=== PATIENT | female | born 1970 | race Caucasian/White ===

== ENCOUNTER 2017-03-14 14:40 | Emergency (ER) | payer SELFPAY ==
[2017-03-14] MEDS ORDERED: KETOROLAC 60 MG/2 ML VIAL IM ONE (14:58)
[2017-03-14 15:05] VITALS: RESP 18; TEMP 99
[2017-03-14 15:16] LABS: BILIRUBIN,URINE NEGATIVE (NEG); COLOR,URINE YELLOW; GLUCOSE, URINE (UA) NEGATIVE (NEG); NITRATE,URINE NEGATIVE (NEG); OCCULT BLOOD,URINE NEGATIVE (NEG); PROTEIN,URINE NEGATIVE (NEG); UROBILINOGEN,URINE 0.2 EU/dL (0.2)
[2017-03-14 15:22] LABS: CLARITY,URINE CLEAR (CLEAR)
[2017-03-14 15:23] LABS: SQUAMOUS EPITHELIAL CELL,UR FEW; URINE SAMPLE TYPE CLEAN CATCH URINE
--- NOTE | 2017-03-14 16:26 | DI ---
XR L-SPINE 2-3 VW,03/14/2017 2:59 PM: Clinical History: Low back pain radiating to the left lower extremity. Previous Exam: None at this facility. Findings: AP and lateral views of the lumbar spine are obtained, and demonstrate anatomic alignment without fra ctures. Vertebral body height is preserved. There is mild degenerative facet arthropathy. A nonobstructive bowel gas pattern is seen. No pathologic calcifications are seen. A few peripheral vascular calcifications are noted. Impression: Normal lumbar spine.
--- NOTE | 2017-03-14 23:07 | PDOC ---
Back Pain / Injury HPI - General Chief Complaint: Neck / Back Complaint Stated Complaint: BACK PAIN Date Seen by Provider: 03/14/17 Time Seen by Provider: 15:00 Source: Patient Exam Limitations: POSITIVE: No limitations Nurse's Notes Reviewed & Considered: Yes - History of Present Illness Initial Comments: The patient is a 46-year-old female who presents to the emergency department with lower back pain. She states that over the past couple of weeks she has been having some pain in her lower back. She had been getting some pain radiating down the left leg as well. She denies any specific injury to her back. She states that off and on through the years she has had some similar types of pain in her back although she states that is never lasted this long or become quite as intense. She reports over the past couple of days the intensity has increased. She has had a difficult time even sleeping secondary to the pain. The pain is primarily located in her lower back however does radiate down her left leg to the level of her calf and even sometimes down into her foot. She also occasionally gets some numbness in her calf and foot. She denies any change in urinary symptoms although she does report some urinary incontinence type symptoms. She denies fevers or chills. She has not had any prior surgery on her back. She has been taking ibuprofen without any relief. - Patient Home Medications Home Medications: Home Medications Buspirone HCl 15 mg PO BID 03/14/17 Cyclobenzaprine HCl [Flexeril] 10 mg PO TID PRN #20 tab 03/14/17 Diclofenac Sodium [Voltaren] 2 gm TP QID 03/14/17 Escitalopram Oxalate [Lexapro] 20 mg PO DAILY 03/14/17 Hydrocodone/Acetaminophen [[place] 7.5-325 Tablet] 1 each PO Q6H #15 tablet Ibuprofen 800 mg PO TID PRN 03/14/17 - Patient Allergies Allergies/Adverse Reactions: Allergies Allergy/AdvReac Type Severity Reaction Status Date / Time No Known Allergies Allergy Unverified 03/14/17 14:53 Past Medical History - heen HEENT History: Denies History Cardiovascular History: Denies History Respiratory History: Denies History Gastrointestinal History: Denies History Genitourinary History: Denies History Endocrine History: Denies History Musculoskeletal History: Denies History Prosthesis or Implant: No Neurological History: Denies History Blood Disorders: Denies History Psychiatric History: Denies History History of Sexually Transmitted Diseases: No Female Reproductive History: Denies History LMP: 2 YRS Obstetrical History: Denies History Cancer History: Denies History In Past Year Been Physically Harmed or Verbally Threatened: No History of MDRO: No History of Other Communicable Diseases: No Tobacco Use: Current Every Day Smoker Alcohol Use: Rarely Substance Use Type: Marijuana Previous Surgical History: No Past Medical History Reviewed: Reviewed - No Changes ROS - Limitations ROS Limitations: No Limitations Constitution: DENIES: Chills, Fever Cardiovascular: REPORTS: Denies Cardiac Symptoms Respiratory: REPORTS: Denies Resp Symptoms Neurological: REPORTS: Numbness (Some numbness in the left calf extending into her foot and toes). DENIES: Weakness Gastrointestinal: REPORTS: Denies GI Symptoms. DENIES: Abdominal Pain, Vomitting Genitourinary: REPORTS: Other (Some urinary incontinence type symptoms which have been ongoing even prior to this back pain). DENIES: Discharge, Dysuria, Flank Pain, Difficulty Urinating Eyes: REPORTS: Denies Symptoms ENT: REPORTS: Denies Symptoms Skin: DENIES: Rash Back Physical Assessment - General Appearance General Appearance: REPORTS: Alert, Cooperative, No Acute Distress - HEENT HEENT: POSITIVE: Head Inspection Nml, Eyes Inspection Nml, Ears Inspection Nml, Nose Inspection Nml, Pharynx Inspect. Nml - Respiratory / CVS Respiratory / CVS: POSITIVE: Breath Sounds Normal, No Respiratory Distress, Heart Sounds Normal, Regular Rate/Rhythm - Abdomen Abdomen: Soft: (All Quadrants), Denies Tenderness: (All Quadrants), No Distention: (All Quadrants) - Back Back: REPORTS: Normal Inspection, Other (She does have tenderness in the lumbar region without any evidence of swelling or erythema) - Skin Skin: REPORTS: Intact, No Rash - Extremities Extremity Assessment: Normal ROM: (ALL), Normal Inspection: (ALL) Peripheral Pulses: Dorsalis-pedis (R): 2+, Dorsalis-pedis (L): 2+ - Neurological / Psychological Neuro / Psych: POSITIVE: Oriented X3, Motor Normal, Sensation Normal Back Progress - Results Reviewed by me Xrays/CTs/US Reviewed: Yes Discussed with Radiologist: Yes Radiology Findings: X-ray of the lumbar spine reveals no evidence of fracture, no acute abnormalities per radiologist. Lab Results Reviewed: Yes Lab Results:: Laboratory Results 03/14/17 Range/Units 15:07 Ur Collection Type Clean catch urine Urine Color Yellow Urine Clarity Clear (CLEAR) Urine pH 7.0 (5.0-8.5) Ur Specific [place] <=1.005 (1.005-1.030) Urine Protein Negative (NEG) mg/dl Urine Glucose (UA) Negative (NEG) mg/dL Urine Ketones Negative (NEG) Urine Occult Blood Negative (NEG) Urine Nitrate Negative (NEG) Urine Bilirubin Negative (NEG) Urine Urobilinogen 0.2 (0.2) EU/dL Ur Leukocyte Esterase Trace (NEG) Urine RBC None (NONE) /hpf Urine WBC 3-5 (NONE) Ur Squamous Epith Cells Few (NONE) Ur Renal Epithelial Cell None (NONE) Urine Crystals None Urine Bacteria None (NONE) Urine Casts None (NONE) Urine Mucus None (NONE) Urine Trichomonas None (NONE) Urine Yeast None (NONE) Ur Culture Indicated? Culture not set - Patient's Progress MDM / ED Course: The patient was given an injection of Toradol 60 mg and Norflex 60 mg IM. X- rays were obtained showing no evidence of acute fracture, she does have some mild degenerative changes noted. Urinalysis did not reveal any evidence of infection or blood. She is advised to continue ibuprofen 800 mg every 8 hours as needed for pain. In addition she was given a prescription for Flexeril 10 mg every 8 hours as needed for spasm and [place] 5/325 every 6 hours as needed for pain. She is advised return to the emergency room if she develops increased pain, numbness or weakness in her legs, bowel or bladder dysfunction, any worsening or change in symptoms. She is advised follow-up with her primary care provider in 5-7 days. She is advised that if she has continued pain or radicular pain down her leg that she may require MRI for further evaluation. - Consult Counseled: POSITIVE: Patient, RE: Lab Results, RE: Radiology Results, RE: DX, RE : Need for F/U Patient Care Time - Estimated PCT Patient Care Time (In Minutes): 20 Vital Signs - VS Reviewed Vital Signs Reviewed: Yes Discharge Clinical Impression: Acute low back pain, Lumbar radicular pain Discharge Disposition: Discharged to Home Condition: Fair Prescriptions / Orders: Cyclobenzaprine HCl [Flexeril] 10 mg PO TID PRN #20 tab PRN Reason: Spasms Hydrocodone/Acetaminophen [[place] 7.5-325 Tablet] 1 each PO Q6H #15 tablet Patient Instructions Given at Discharge: Lumbar Radiculopathy (ED), Back Pain ( ED) Additional Instructions: The x-rays of your lower back did not reveal any evidence of fracture, there was some mild arthritic changes as well as some mild disc space narrowing. Recommend continued use of ibuprofen 800 mg every 8 hours as needed for pain. In addition your been prescribed Flexeril 10 mg every 8 hours as needed for spasm and [place] 7.5/325 one every 6 hours as needed for severe pain. Return to the emergency room if increased pain, weakness or numbness in her legs, fever, any worsening or change in symptoms. Recommend follow-up with primary care in 5 -7 days. If continued pain in may require further evaluation with MRI. Follow Up With: NONE,NONE [Primary Care Provider] -
== END 2017-03-14 16:22 | disposition home or self-care (01) ==
LOC: ER 14:40
DX: M54.16 Radiculopathy, lumbar region (principal); M54.5 Low back pain
CPT/HCPCS: 72100; 81001; 81003; 96372; 99283; J1885; J2360